=== PATIENT | female | born 1995 | race Caucasian/White ===

== ENCOUNTER 2018-10-02 11:56 | Emergency (ER) | payer MEDICAID, SELFPAY ==
[2018-10-02 11:59] VITALS: BP 105/55; PULSE 101; RESP 18; TEMP 36.5; O2SAT 96
--- NOTE | 2018-10-02 12:13 | W.ED.GENAD ---
Discharge Plan Disposition Patient Disposition: AGAINST MEDICAL ADVICE Condition: Stable Discharge Details Chief Complaint: Abd Prob Clinical Impression: Abdominal pain, History of Crohn's disease, Vomiting and diarrhea Primary Care Provider: THERESE BOURGEOIS ED Provider: Irma Concepcion Home Meds and New Rx's Prescriptions: Continue mesalamine 250 mg Capsule, Extended Release 250 mg PO BID RF: 0 norethindrone (contraceptive) [Chelita-BE] 0.35 mg Tablet 1 tab PO DAILY RF: 0 Discharge Instructions Instructions: Acute Nausea and Vomiting (ED), Acute Diarrhea (ED), Abdominal Pain (ED) Additional Instructions: You should receive a call from [facility] gastroenterology regarding follow-up later this week. Take your regular medications as directed. Alternate Tylenol and Motrin as needed and directed for pain. Return immediately to the emergency department for any worsening or new concerning symptoms. Discharge Data Discharge Date/Time-TO BE ENTERED AT DEPARTURE: 10/02/18 23:00 Discharge Physician: Irma Concepcion Medical Decision Making <Neha Roche MD - Last Filed: 10/09/18 10:20> Sherry Cerna is a 23 y/o woman with history of Crohn's disease presenting to the emergency department with 1 week of gradually worsening abdominal pain, also with vomiting and diarrhea. On exam patient is nontoxic appearing uncomfortable. Right lower quadrant and middle lower abdominal tenderness to palpation, no rebound or guarding. Normal cardiopulmonary exam. Concern for Crohn's flare versus appendectomy versus UTI versus other. Exam/history not consistent with acute aortic pathology, sepsis. Plan for screening labs, IV fluids, CT abdomen pelvis, UA, U . Patient declines pain medication at this time. CT per radiology shows possible appendicitis, possible torsion, possible Crohn's disease related fistulas. I contacted Dr. Ardon of surgery, who recommends consultation with GI, given Crohn's disease she would not make recommendations at this time. Plan for pelvic ultrasound and discussion with GI. At this time given 2 weeks of unchanged pain suspect Crohn's flare over other acute etiology. Patient signed out to Dr. Concepcion at time of shift change with labs, ultrasound, consultation with GI at [facility], disposition pending. Medical Records Medical records reviewed: Yes I reviewed the patient's medical records. Imaging Data Radiologic Study: Attestation: I personally reviewed and interpreted this imaging study as follows: Radiologist's impression: CLINICAL HISTORY: 23 years old, female; Pain; Abdominal pain; Localized; Right lower quadrant (rlq); Patient HX: Crohn's disease, generalized abd pain worse in rlq TECHNIQUE: Axial computed tomography images of the abdomen and pelvis with intravenous contrast. Coronal and sagittal reformatted images were created and reviewed. COMPARISON: No relevant prior studies available. FINDINGS: Limitations: Compromised examination secondary to motion and the lack of intraperitoneal fat. Lower thorax: Linear atelectasis or scarring at the lung bases. Gas in the distal esophagus which can be seen with reflux. ABDOMEN: Liver: Normal. No mass. Gallbladder and bile ducts: Normal. No calcified stones. No ductal dilation. Pancreas: Normal. No ductal dilation. Spleen: Normal. No splenomegaly. Adrenals: Normal. No mass. Kidneys and ureters: Normal. No hydronephrosis. Stomach and bowel: There is a dilated loop of small bowel in the right hemiabdomen with a small bowel feces sign, suggesting a component of delayed transit/obstruction. Downstream from this, the terminal ileum is thickened and narrowed in appearance suggestive of an active Crohn's flair. The more upstream small bowel is normal in caliber. There are branching anomalies arising from this thickened narrowed loop of bowel on series 5 images 40 and 35, worrisome for fistulous connections to other loops of bowel. Stool is noted throughout the colon which can be seen with constipation. Appendix: A candidate for the appendix is seen on series 5 image 44 measuring 7.4 mm, dilated. There is some adjacent stranding. These findings are probably reactive however acute appendicitis is not excluded. Correlation suggested. PELVIS: Bladder: Unremarkable as visualized. Reproductive: There is prominence to the right ovary on series 7 image 30 with a 1.3 cm 37 Hounsfield unit hypodensity identified which does not fulfill the criteria for a simple cyst. There is heterogeneity to the lower uterine segment where a 1 cm rounded hypodensity is noted (series 8 image 59). Abnormalities in this region are not excluded. ABDOMEN and PELVIS: Intraperitoneal space: Free fluid is identified in the right lower quadrant and pelvis. In the pelvis, portions measure greater than water density. Components of blood or protein (infection) are not excluded. In addition, there is some rim enhancement surrounding the fluid in the right pelvis (series 6 image 562) for which developing abscess is not excluded. Bones/joints: Scattered sclerotic foci in the bones. In the absence of known malignancy, these most likely represent bone islands. Scoliosis. Soft tissues: Unremarkable. Vasculature: Normal. No abdominal aortic aneurysm. Lymph nodes: There are some prominent mesenteric lymph nodes measuring up to 9 mm meters on short axis which may be reactive. IMPRESSION: 1.There is a dilated loop of small bowel in the right hemiabdomen with a small bowel feces sign, suggesting a component of delayed transit/obstruction. Downstream from this, the terminal ileum is thickened and narrowed in appearance suggestive of an active Crohn's flair. There are abnormalities arising from the thickened loop, worrisome for fistulas. The more upstream small bowel is normal in caliber. 2. A candidate for the appendix is seen on series 5 image 44 measuring 7.4 mm, mildly dilated. There is some adjacent stranding. These findings are probably reactive however acute appendicitis is not excluded. Correlation suggested. 3. Free fluid is identified in the right lower quadrant and pelvis. In the pelvis, portions measure greater than water density. Components of blood or protein (infection) are not excluded. In addition, there is some rim enhancement surrounding the fluid in the right pelvis for which developing abscess is not excluded. 4. Abnormalities in the right ovary and uterus as described. A gynecologic sources of patient's pain is not entirely excluded. An ultrasound could be considered for further evaluation. Other findings as above. Dictated and Authenticated by: Ena Gacria MD. Lab Data Lab results reviewed: Yes I reviewed the patient's lab results. Laboratory Tests Range/Units 10/02/18 10/02/18 10/02/18 12:05 12:55 12:55 WBC (4.4-10.8) k/cumm 8.17 RBC (4.00-5.20) m/cumm 4.80 Hgb (12.0-15.5) g/dL 13.7 Hct (36.0-46.0) % 41.8 MCV (80-95) fL 87.1 MCH (27.0-33.0) pg 28.5 MCHC (32.0-36.0) g/dL 32.8 RDW (11.7-14.6) % 15.4 H Plt Count (130-400) x1000/uL 345 MPV (8.0-11.0) fL 10.2 Immature Gran % 0.1 Neutrophils % 78.2 Lymphocytes % 14.9 Monocytes % 6.1 Eosinophils % 0.5 Basophils % 0.2 Absolute Neutrophils (1.2-6.7) k/cumm 6.38 Absolute Lymphocytes (1.2-3.4) k/cumm 1.22 Absolute Monocytes (0.11-0.7) k/cumm 0.50 Absolute Eosinophils (0.0-0.7) k/cumm 0.04 Absolute Basophils (0.0-0.2) k/cumm 0.02 Sodium (136-145) mmol/L 138 Potassium (3.5-5.1) mmol/L 3.8 Chloride (98-107) mmol/L 101 Carbon Dioxide (21.0-32.0) mmol/L 26.1 Anion Gap (3-11) mmol/L 10.9 BUN (7-18) mg/dL 7 Creatinine (0.55-1.02) mg/dL 0.59 Estimated GFR/1.73 m2 (mL/min/1.73m2) >= 60.00 Glucose (70-100) mg/dL 79 Calcium (8.5-10.1) mg/dL 9.0 Total Bilirubin (0.2-1.0) mg/dL 0.2 AST (15-37) U/L 12 L ALT (12-78) U/L 22 Alkaline Phosphatase (46-116) U/L 122 H Total Protein (6.4-8.2) g/dL 8.7 H Albumin (3.4-5.0) g/dL 3.6 Lipase (73-393) U/L 284 Urine Color (Yellow) Yellow Urine Clarity Sl cloudy Urine pH (5-8) 5.5 Ur Specific [place] (1.005-1.025) 1.015 Urine Protein (Negative) mg/dL Negative Urine Ketones (Negative) mg/dL Negative Urine Blood (Negative) Negative Urine Nitrite (Negative) Negative Urine Bilirubin (Negative) Negative Urine Urobilinogen (Up TO 0.2) EU/dL 0.2 Ur Leukocyte Esterase (Negative) Small H Urine RBC (0-2) 0-2 Urine WBC (0-5) HPF 20-50 Ur Epithelial Cells (Negative) HPF Many Urine Crystals (Negative) HPF Negative Urine Bacteria (Negative) HPF Moderate Urine Casts (Negative) LPF Negative Urine Mucus (Negative) Negative Ur Culture Indicated? No/sq. contamination Urine Glucose (Negative) mg/dL Negative <Irma Concepcion DO - Last Filed: 10/02/18 23:14> Please see Dr. Neha Roche's note for initial presentation, exam and plan. Patient is a 23-year-old female with a history of Crohn's disease diagnosed in 2014 who presents with sharp intermittent right lower quadrant abdominal pain for the past few weeks that feels more intense than her usual Crohn's disease flare. She states she is unsure of the last time she had a Crohn's flare but thinks it might of been a year ago. She also admits to several episodes daily of vomiting and diarrhea for the past 2 weeks. States diarrhea has been watery brown and occasionally bloody. States her vomitus has been clear and green states her last episode of diarrhea and vomiting was this morning. She denies any fever, urinary symptoms, vaginal discharge, recent antibiotics or recent travel. Dr. Roche obtained labs, urinalysis and CT abdomen and pelvis and gave patient a dose of morphine. She has no fever and a normal white blood cell count. Remainder of the labs unremarkable as well. Urinalysis showed contamination so she has ordered a clean catch urine. Plan upon endorsement was follow-up with GI from [facility] regarding CT imaging results. Radiologist noted questionable fistulous first obstruction, questionable appendicitis, and questionable ovarian torsion. Patient was sent for pelvic ultrasound to reassess for torsion. 191 --Case discussed with GI from [facility] and per their records, patient had missed several appointments and has not seen them for the past 2 years. He recommends to restage her for her Crohn's disease and possibly an MR enterography and colonoscopy. He recommends checking a CRP and ESR and if significantly elevated could indicate a Crohn's flare. Recommend to check C. difficile and if negative could consider starting steroids. Recommends to continue mesalamine, Tylenol and heat packs. States that if the patient has fistulas, would recommend antibiotics. No fistulas noted on exam. Will call patient to arrange for follow-up later this week in the office. Discussed with transfer center that I would want surgery to be consulted for evaluation of the possible appendicitis versus obstruction. Patient ultimately states she would like to go home. She admits to some relief with morphine but states her pain is returning. We will give another dose of morphine. Patient has had no further vomiting or diarrhea while here in the ED. Would be less likely for C. difficile as she has not had any diarrhea here today. 1943 -- [facility] called and and stated that radiology and surgery are requesting a second read of CT by a different [facility] radiologist. 1954 -- [facility]r report of pelvic US note blood flow in the right ovary but cannot exclude torsion due to dual blood supply and left ovary not visualized. 2003 - d/w [facility] - they do not do re reads - d/w [facility] radiologist Dr. Garcia who read CT and US - thinks most likely a crohn's flare but can't r/o obstruction. Also could be appendicitis or torsion but with pt's h/o pain for weeks, no fever and normal wbc, would be less likely. 2034 -- d/w [facility] - there was a misunderstanding with re read - they wanted me to have their radiologist at [facility] read the imaging and give report. Form from [facility] was completed by me and faxed back to them. 2229 -- Pt wants to leave. No response yet from [facility]. Called [facility] again and they are busy with trauma cases and still no response from radiology or surgery. CRP 3.25 and ESR 22 which are not significantly elevated and likely not consistent with an acute IBD flare. Discussed with patient that her symptoms of vomiting, diarrhea and abdominal pain for 3 weeks may be likely more consistent with a viral process, rather than a crohn's flare, appendicitis or torsion, however without surgery or additional radiologist evaluating the imaging to give their impression, I am unsure of the diagnosis. The risks of and disability due to a serious pathology were explained and patient fully understands and would still like to leave. She demonstrates capacity make decisions. AMA form signed. Repeat clean-catch urinalysis negative. Patient was instructed that [facility] GI will contact her for follow-up this week. She was instructed to return here immediately with any worsening or new concerning symptoms. HPI <Neha Roche MD - Last Filed: 10/09/18 10:20> General Mode of arrival: ambulatory. Date/Time Provider Initiated Documentation: 10/02/18 12:13. Limitations to Documentation: no limitations. Information obtained by: patient, RN notes reviewed and old records reviewed. HPI Narrative: Sherry Cerna is a 23 y/o woman with history of Crohn's disease presenting to the emergency department with 1 week of gradually worsening abdominal pain. Patient reports that she takes mesalamine for Crohn's disease, is currently on no other medications. She reports that generalized abdominal pain has been worsening over the past few days. She has also had multiple episodes of diarrhea daily, and has had several episodes of vomiting, last episode yesterday. Patient reports that this feels similar to prior Crohn's disease flares. She denies fever, any other pain, shortness of breath, cough, rash, constipation, dysuria, numbness, tingling, weakness. No recent travel. No other recent illnesses. Related Data Home Medications Medication Instructions Recorded Confirmed mesalamine 250 mg PO BID 10/02/18 10/02/18 norethindrone (contraceptive) 1 tab PO DAILY 10/02/18 10/02/18 [Chelita-BE] Allergies Allergy/AdvReac Type Severity Reaction Status Date / Time No Known Allergies Allergy Unverified 10/02/18 12:06 General Stated Complaint: Abd Prob KATIA: 3 Review of Systems <Neha Roche MD - Last Filed: 10/09/18 10:20> Review of Systems Constitutional: denies fevers Eyes: denies eye pain ENT: denies facial pain, dental pain, sore throat Cardiovascular: denies chest pain, edema Respiratory: denies SOB, cough GI: reports abdominal pain, vomiting, diarrhea, denies melena : denies flank pain MSK: denies back pain, neck pain, arthralgias, myalgias Skin: denies rash Neuro: denies headaches, lightheadedness, weakness Exam <Neha Roche MD - Last Filed: 10/09/18 10:20> Narrative Exam Narrative: Constitutional: well and [id number], pleasant, conversing normally HENT: head atraumatic, normocephalic normal inspection, mucous membranes moist Eyes: conjunctiva normal, sclera normal, pupils 3mm b/l Neck: no stridor, normal ROM, trachea midline Chest: normal inspection Resp: normal work of breathing, LCTAB Cardio: normal rate, normal rhythm, no murmur appreciated GI: abdomen soft, non-distended, RLQ TTP, middle lower abd TTP, no rebound or guarding Back: normal inspection, no rash Skin: warm, dry, normal color, no rash Neuro: alert, not altered, grossly non-focal, normal tone Ext: no edema Psych: normal mood, normal affect, normal behavior Course <Neha Roche MD - Last Filed: 10/09/18 10:20> Vital Signs Temperature 36.5 C 10/02/18 11:59 Pulse 101 H 10/02/18 11:59 Respiratory Rate 18 10/02/18 11:59 Blood Pressure 105/55 L 10/02/18 11:59 Pulse Oximetry 96 10/02/18 11:59 Temperature 36.5 C 10/02/18 11:59 Temperature Source Skin 10/02/18 11:59 Pulse 101 H 10/02/18 11:59 Respiratory Rate 18 10/02/18 11:59 Respiratory Effort 10/02/18 12:05 Blood Pressure 105/55 L 10/02/18 11:59 Blood Pressure Position Sitting 10/02/18 11:59 Pulse Oximetry 96 10/02/18 11:59 Oxygen Delivery Method Room Air 10/02/18 11:59 Oxygen Flow Rate 0 10/02/18 11:59 Pain Level 9 10/02/18 11:59 Sign Out <Neha Roche MD - Last Filed: 10/09/18 10:20> Sign Out Data: Sign Out Comment: Patient signed out to Dr. Concepcion at shift change with ultrasound, GI consult, rpt UA, dispo. Last updated by Neha Roche MD at 10/02/18 17:58
[2018-10-02 12:25] LABS: Bilirubin Negative (Negative); Blood Negative (Negative); Clarity Sl Cloudy; Glucose Negative (Negative); Ketones Negative (Negative); Leukocyte Esterase Small (Negative); Nitrite Negative (Negative); Specific Gravity 1.015 (1.005-1.025); Urobilinogen 0.2 EU/dL (Up TO 0.2); pH 5.5 (5-8)
[2018-10-02 12:33] LABS: Bacteria Moderate HPF (Negative); C & S Indicated? No/Sq. Contamination; Casts Negative LPF (Negative); Crystals Negative HPF (Negative); Epithelial Cells Many HPF (Negative); Mucus Negative (Negative); RBC 0-2 (0-2); WBC 20-50 HPF (0-5)
[2018-10-02] MEDS: Normal Saline 1,000 ML 1000 ML IV ×2 (13:40→14:43)
[2018-10-02 13:47] LABS: Abs Immature Grans 0.01 k/cumm (0.0-0.09); Absolute Basophil Count 0.02 k/cumm (0.0-0.2); Absolute Eosinophil Count 0.04 k/cumm (0.0-0.7); Absolute Lymphocyte Count 1.22 k/cumm (1.2-3.4); Absolute Neutrophil Count 6.38 k/cumm (1.2-6.7); Basophils % 0.2; Eosinophils % 0.5; HCT 41.8 % (36.0-46.0); HGB 13.7 g/dL (12.0-15.5); Immature Grans % 0.1; Lymphocytes % 14.9; Mean Corp. HGB Concentration 32.8 g/dL (32.0-36.0); Mean Corpuscular Hemoglobin 28.5 pg (27.0-33.0); Mean Corpuscular Volume 87.1 fL (80-95); Mean Platelet Volume 10.2 fL (8.0-11.0); Monocytes % 6.1; Neutrophils % 78.2; Platelet Count 345 x1000/uL (130-400); RBC Distribution Width 15.4 % (11.7-14.6); White Blood Cell Count 8.17 k/cumm (4.4-10.8)
[2018-10-02 14:04] LABS: ALT 22 U/L (12-78); AST 12 U/L (15-37); Albumin 3.6 g/dL (3.4-5.0); Alkaline Phosphatase 122 U/L (46-116); Anion Gap 10.9 mmol/L (3-11); BUN 7 mg/dL (7-18); Bilirubin, Total 0.2 mg/dL (0.2-1.0); CO2 26.1 mmol/L (21.0-32.0); CREATININE 0.59 mg/dL (0.55-1.02); Chloride 101 mmol/L (98-107); Glucose 79 mg/dL (70-100); Lipase 284 U/L (73-393); Potassium 3.8 mmol/L (3.5-5.1); Sodium 138 mmol/L (136-145); Total Protein 8.7 g/dL (6.4-8.2)
--- NOTE | 2018-10-02 14:07 | DI.CT_ITS ---
SYMPTOM/DIAGNOSIS: CROHN'S DISEASE, GENERALIZED ABD PAIN WORSE IN RLQ CT ABDOMEN AND PELVIS: The study was carried out with intravenous contrast enhancement. Motion artifacts and the lack of intraperitoneal fat somewhat limits the sensitivity of the study Regions of atelectasis or scarring are noted in the lung base. There is some gas in the distal esophagus which likely represents reflux. The liver is normal. The gallbladder is normal. The pancreas, spleen and adrenals, kidneys and ureters are normal. There is a dilated loop of small bowel in the right katelynn-abdomen with a small feces sign suggesting a question of delayed transit or obstruction. Just distal to this in the terminal ileum it is noted to be thickened with narrowing of the distal ileum which could represent Crohn's disease. There are branching anomalies arising from the thickened narrowed bowel loop which could represent fistulous connections to other bowel loops, Stool is noted throughout the colon and would certainly be consistent with constipation. There are findings involving the appendix which is somewhat dilated at 7.4 mm and there is some adjacent stranding. These findings are probably reactive however, acute appendix cannot be excluded. These findings to be correlated with the patient's clinical lstatus. Bladder is unremarkable. There is prominence of the right ovary. A region of hypodensity is identified and likely represents a cyst but does not fulfil the criteria for a simple cyst. Further evaluation with ultrasound is suggested. There is heterogeneity of the lower uterine segment with a rounded hypodensity noted. Abnormalities in this region could not be excluded. There is free fluid identified in the right lower quadrant and pelvis, portions measuring greater than water density. Components of blood or protein or infection could certainly appear in this fashion. In addition, there are some rim enhancements surrounding fluid in the right katelynn-pelvis for which developing abscess cannot be excluded. No acute bony abnormality is seen. Scattered sclerotic regions are identified most likely representing bone islands. There is evidence of scoliosis. The soft tissues are unremarkable. There is no evidence of abdominal aortic aneurysm. There is some prominent mesenteric lymph nodes measuring up to 9 mm in short axis which likely are reactive. SUMMARY: There is a dilated loop of small bowel in the right upper quadrant with small bowel fecal signs suggesting the possibility of delayed transit or obstruction. Distal to this the terminal ileum is thickened and narrowed in appearance suggestive of active Crohn's flair. There are abnormalities arising from the thickened loop which could represent fistula. The small bowel proximal to this region is of normal caliber. There are findings involving the appendix with a transverse diameter of up to 7.4 mm which is mildly dilated. There is some minor adjacent stranding. These findings are probably on a reactive basis however, the possibility of acute appendix could not be excluded. As noted above, there is free fluid in the right lower quadrant and pelvis. The density somewhat greater than H2O and as described these could represent infection and/or blood. In addition, there is some rim enhancement surrounding the fluid in the right katelynn-pelvis which could represent a developing abscess. Abnormalities in the right ovary and uterus are noted as described above. Further evaluation with pelvic ultrasound is suggested since the possibility of being abscess could not be excluded. Abnormalities in the right ovary are described, and could also be further elucidated with pelvic ultrasound.
[2018-10-02] MEDS: Ondansetron 4 MG/2 ML VIAL (15:56)
[2018-10-02] MEDS: Omnipaque 350 MG/ML 100 ML BTL IJ (16:30)
--- NOTE | 2018-10-02 17:26 | DI.VRAD_ITS ---
EXAM: CT Abdomen and Pelvis With Intravenous Contrast EXAM DATE/TIME: 10/02/2018 2:08 PM CLINICAL HISTORY: 23 years old, female; Pain; Abdominal pain; Localized; Right lower quadrant (rlq); Patient HX: Crohn's disease, generalized abd pain worse in rlq TECHNIQUE: Axial computed tomography images of the abdomen and pelvis with intravenous contrast. Coronal and sagittal reformatted images were created and reviewed. COMPARISON: No relevant prior studies available. FINDINGS: Limitations: Compromised examination secondary to motion and the lack of intraperitoneal fat. Lower thorax: Linear atelectasis or scarring at the lung bases. Gas in the distal esophagus which can be seen with reflux. ABDOMEN: Liver: Normal. No mass. Gallbladder and bile ducts: Normal. No calcified stones. No ductal dilation. Pancreas: Normal. No ductal dilation. Spleen: Normal. No splenomegaly. Adrenals: Normal. No mass. Kidneys and ureters: Normal. No hydronephrosis. Stomach and bowel: There is a dilated loop of small bowel in the right hemiabdomen with a small bowel feces sign, suggesting a component of delayed transit/obstruction. Downstream from this, the terminal ileum is thickened and narrowed in appearance suggestive of an active Crohn's flair. The more upstream small bowel is normal in caliber. There are branching anomalies arising from this thickened narrowed loop of bowel on series 5 images 40 and 35, worrisome for fistulous connections to other loops of bowel. Stool is noted throughout the colon which can be seen with constipation. Appendix: A candidate for the appendix is seen on series 5 image 44 measuring 7.4 mm, dilated. There is some adjacent stranding. These findings are probably reactive however acute appendicitis is not excluded. Correlation suggested. PELVIS: Bladder: Unremarkable as visualized. Reproductive: There is prominence to the right ovary on series 7 image 30 with a 1.3 cm 37 Hounsfield unit hypodensity identified which does not fulfill the criteria for a simple cyst. There is heterogeneity to the lower uterine segment where a 1 cm rounded hypodensity is noted (series 8 image 59). Abnormalities in this region are not excluded. ABDOMEN and PELVIS: Intraperitoneal space: Free fluid is identified in the right lower quadrant and pelvis. In the pelvis, portions measure greater than water density. Components of blood or protein (infection) are not excluded. In addition, there is some rim enhancement surrounding the fluid in the right pelvis (series 6 image 562) for which developing abscess is not excluded. Bones/joints: Scattered sclerotic foci in the bones. In the absence of known malignancy, these most likely represent bone islands. Scoliosis. Soft tissues: Unremarkable. Vasculature: Normal. No abdominal aortic aneurysm. Lymph nodes: There are some prominent mesenteric lymph nodes measuring up to 9 mm meters on short axis which may be reactive. IMPRESSION: 1.There is a dilated loop of small bowel in the right hemiabdomen with a small bowel feces sign, suggesting a component of delayed transit/obstruction. Downstream from this, the terminal ileum is thickened and narrowed in appearance suggestive of an active Crohn's flair. There are abnormalities arising from the thickened loop, worrisome for fistulas. The more upstream small bowel is normal in caliber. 2. A candidate for the appendix is seen on series 5 image 44 measuring 7.4 mm, mildly dilated. There is some adjacent stranding. These findings are probably reactive however acute appendicitis is not excluded. Correlation suggested. 3. Free fluid is identified in the right lower quadrant and pelvis. In the pelvis, portions measure greater than water density. Components of blood or protein (infection) are not excluded. In addition, there is some rim enhancement surrounding the fluid in the right pelvis for which developing abscess is not excluded. 4. Abnormalities in the right ovary and uterus as described. A gynecologic sources of patient's pain is not entirely excluded. An ultrasound could be considered for further evaluation. Other findings as above. Dictated and Authenticated by: Ena Garcia MD. Ordering:MELONY CHANCE MD
--- NOTE | 2018-10-02 17:56 | DI.US_ITS ---
SYMPTOM/DIAGNOSIS: RLQ PAIN, ABNORMAL RIGHT OVARY ON CT PELVIC ULTRASOUND: A transabdominal and transvaginal examination was carried out. The right kidney is intact measuring 10.2 cm. There is no hydronephrosis. The left kidney measures 10.4 cm and is intact. The uterus is acoustically heterogeneous. The endometrial stripe measuring 14 mm. A rounded structure in the lower uterine segment is partially solid/partially cystic. This measures 1.7 cm and likely represents a fibroid. The left ovary was not seen. The right ovary measures 4.2 x 3.3 x 1.7 cm and contains multiple follicles. Note is also made of a 1.5 cm cystic structure in the right ovary. Arterial and venous blood flow is identified in the right ovary and there is nothing to suggest a torsion. Evaluation of the bowel reveals multiple dilated bowel loops within the pelvis along with free fluid. A collection of fluid could represent blood or a mass which is superior to the urinary bladder. There is fluid in this region on a recent CT scan which measures greater than water density for which components of blood or protein (infection) could not be excluded. SUMMARY: Question lower uterine segment fibroid vs Nabothian cyst. Fluid in the pelvis could represent hemorrhage. The kidneys are intact. There is good blood flow in the right ovary. The left ovary is not seen. Further assessment with CT could be obtained.
[2018-10-02 19:02] VITALS: BP 100/54; PULSE 75; RESP 16
[2018-10-02 19:39] LABS: C-Reactive Protein 3.25 mg/dL (0.0-0.3)
--- NOTE | 2018-10-02 19:48 | DI.VRAD_ITS ---
EXAM: US Duplex Artery and Vein of the Abdomen, Pelvis, Scrotum and/or Retroperitoneum, Complete. EXAM DATE/TIME: 10/02/2018 5:57 PM CLINICAL HISTORY: 23 years old, female; Pain; Other: Rlq pain abn RT ovary on CT TECHNIQUE: Real-time duplex ultrasound scan of the arterial and venous flow of the abdomen, pelvis, scrotum and/or retroperitoneum, with B-mode, color Doppler flow and spectral waveform analysis. Complete exam. The case was also discussed with the performing cytotechnologist/cytology supervisor Sapphire Dunlap at 10/02/2018 7:42 PM EST. COMPARISON: CT ABDOMEN PELVIS W 10/02/2018 2:50 PM FINDINGS: Right kidney: Right kidney measures 10.2 cm. No hydronephrosis. Left kidney: Left kidney measures 10.4 cm. No hydronephrosis. Uterus: Endometrial stripe measures 0.14 cm. There is a heterogeneous rounded structure in the lower uterine segment which is partially solid/partially cystic. This measures 1.7 cm. It is difficult to determine if this is within the canal or adjacent to it. This could be a degenerating fibroid. Other types of abnormalities not excluded. Ovaries: The left ovary was not visualized. Abnormalities in the left ovary cannot be excluded. The right ovary measures 4.2 x 3.3 x 1.7 cm and contains multiple follicles. There is also a cystic structure in the right ovary measuring 1.5 cm. Arterial and venous blood flow is identified in the right ovary. Intraperitoneal space: Many dilated loops of bowel are noted within the pelvis along with free fluid. Image 176 demonstrates an unusual heterogeneous soft tissue density superior to the urinary bladder. Per the cytotechnologist/cytology supervisor, this did not peristalse. This could represent a dilated loop of bowel that is not peristalsing. A collection of blood or a mass is not entirely excluded. There was fluid in this region on recent CT scan which measure greater than water density and for which components of blood or protein (infection) were not excluded. IMPRESSION: 1. Simple appearing cystic structure in the right ovary, 1.5 cm. There is blood flow in the right ovary. This does not exclude torsion due to the dual blood supply. 2. Left ovary was not visualized. Abnormalities in the left ovary or not excluded. 3. Heterogeneous rounded structure in the lower uterine segment as described. The significance of this is uncertain. It is difficult to determine if this is within the canal or adjacent to it. This could be a degenerating fibroid. Other types of abnormalities not excluded. 4. Many dilated loops of bowel are noted within the pelvis along with free fluid. Image 176 demonstrates an unusual heterogeneous soft tissue density superior to the urinary bladder. Per the cytotechnologist/cytology supervisor, this did not peristalse. This could represent a dilated loop of bowel that is not peristalsing. A collection of blood or a mass is not entirely excluded. There was fluid in this region on recent CT scan which measure greater than water density and for which components of blood or protein (infection) were not excluded. EXAM: US Pelvis Complete, Transabdominal and US Pelvis, Transvaginal EXAM DATE/TIME: 10/02/2018 5:57 PM CLINICAL HISTORY: 23 years old, female; Pain; Other: Rlq pain abn RT ovary on CT TECHNIQUE: Real-time transabdominal and transvaginal pelvic ultrasound (complete) with image documentation. Transvaginal imaging was used for better evaluation of the endometrium and adnexa. COMPARISON: CT ABDOMEN PELVIS W 10/02/2018 2:50 PM FINDINGS: Right kidney: Right kidney measures 10.2 cm. No hydronephrosis. Left kidney: Left kidney measures 10.4 cm. No hydronephrosis. Uterus: Endometrial stripe measures 0.14 cm. There is a heterogeneous rounded structure in the lower uterine segment which is partially solid/partially cystic. This measures 1.7 cm. It is difficult to determine if this is within the canal or adjacent to it. This could be a degenerating fibroid. Other types of abnormalities not excluded. Ovaries: The left ovary was not visualized. Abnormalities in the left ovary cannot be excluded. The right ovary measures 4.2 x 3.3 x 1.7 cm and contains multiple follicles. There is also a cystic structure in the right ovary measuring 1.5 cm. Arterial and venous blood flow is identified in the right ovary. Intraperitoneal space: Many dilated loops of bowel are noted within the pelvis along with free fluid. Image 176 demonstrates an unusual heterogeneous soft tissue density superior to the urinary bladder. Per the cytotechnologist/cytology supervisor, this did not peristalse. This could represent a dilated loop of bowel that is not peristalsing. A collection of blood or a mass is not entirely excluded. There was fluid in this region on recent CT scan which measure greater than water density and for which components of blood or protein (infection) were not excluded. IMPRESSION: 1. Simple appearing cystic structure in the right ovary, 1.5 cm. There is blood flow in the right ovary. This does not exclude torsion due to the dual blood supply. 2. Left ovary was not visualized. Abnormalities in the left ovary or not excluded. 3. Heterogeneous rounded structure in the lower uterine segment as described. The significance of this is uncertain. It is difficult to determine if this is within the canal or adjacent to it. This could be a degenerating fibroid. Other types of abnormalities not excluded. 4. Many dilated loops of bowel are noted within the pelvis along with free fluid. Image 176 demonstrates an unusual heterogeneous soft tissue density superior to the urinary bladder. Per the cytotechnologist/cytology supervisor, this did not peristalse. This could represent a dilated loop of bowel that is not peristalsing. A collection of blood or a mass is not entirely excluded. There was fluid in this region on recent CT scan which measure greater than water density and for which components of blood or protein (infection) were not excluded. Dictated and Authenticated by: Ena Garcia MD. Ordering:MELONY CHANCE MD
[2018-10-02 21:12] LABS: Bilirubin Negative (Negative); Blood Negative (Negative); Clarity Clear; Glucose Negative (Negative); Ketones 15 mg/dL (Negative); Leukocyte Esterase Negative (Negative); Nitrite Negative (Negative); Urobilinogen 0.2 EU/dL (Up TO 0.2); pH 5.5 (5-8)
[2018-10-02 21:22] VITALS: BP 113/64; PULSE 39; RESP 16; O2SAT 99
[2018-10-02 21:26] LABS: ESR 22 MM/HR (0-20)
[2018-10-02 22:38] VITALS: BP 108/62; PULSE 79; RESP 16; O2SAT 97
== END 2018-10-02 23:00 | disposition left against medical advice (07) ==
PROVIDERS: Student in an Organized Health Care Education/Training Program; Emergency Provider Physician Assistant; PCP Family Medicine
DX: R10.31 Right lower quadrant pain (principal); R11.2 Nausea with vomiting, unspecified; R19.7 Diarrhea, unspecified; K50.90 Crohn's disease, unspecified, without complications; R93.3 Abnormal findings on diagnostic imaging of other parts of digestive tract; R93.5 Abnormal findings on diagnostic imaging of other abdominal regions, including retroperitoneum; Z53.29 Procedure and treatment not carried out because of patient's decision for other reasons
CPT/HCPCS: 36415; 80053; 81025; 83690; 85652; 96361; 96374; 96375; 96376; 99285; 74177; 76830; 76856; 81003; 81015; 85025; 86140; 99284; J2405; J3490